=== PATIENT | male | born 1980 | race Caucasian/White ===

== ENCOUNTER 2017-10-22 12:04 | Emergency (ER) | payer MEDICARE ==
--- NOTE | 2017-10-22 12:53 | ERPHSYRPT ---
- History of Present Illness Time Seen by Provider: 10/22/17 12:36 Source: patient Exam Limitations: no limitations Patient Subjective Stated Complaint: Patient states his abdomen hurts above his naval. Patient states the pain is only when he pushes in on his abdomen or when he coughs. Patient stated he felt something in his abdomen above naval after heavy peterson labor. Patient states he can feel something protruding above his naval when he stands up. Triage Nursing Assessment: Patient ambulates in ER. Patient states his abdomen hurts above his naval. Patient states the pain is only when he pushes in on his abdomen or when he coughs. Patient stated he felt something in his abdomen above naval after heavy peterson labor. Patient states he can feel something protruding above his naval when he stands up. BS X 4. Abdoment round, soft. Physician History: 37-year-old white male previously healthy arrives with complaint of a sensation that something pokes out on his anterior abdomen when lifting and straining symptoms since yesterday. He noticed this while lifting at work. He states he has no pain unless he pushes on the area. He states he notices it when he stands up. He has not had any vomiting diarrhea fevers. He states he does note something that protrudes when he stands up but he is able to push it back easily. Past medical history is negative. Past surgical history is negative. Timing/Duration: yesterday Severity: moderate Modifying Factors: Improves With: other (llifting and straining) Associated Symptoms: abdominal pain (patient feels like something protrudes when he stands up and strains able to push back in easily), No nausea, No vomiting, No shortness of breath, No heartburn, No diaphoresis, No cough Hx Tetanus, Diphtheria Vaccination/Date Given: (Unknown) Hx Influenza Vaccination/Date Given: No Hx Pneumococcal Vaccination/Date Given: No Immunizations Up to Date: Yes - Review of Systems Constitutional: No Fever, No Chills Eyes: No Symptoms Ears, Nose, & Throat: No Symptoms Respiratory: No Cough, No Dyspnea Cardiac: No Chest Pain, No Edema, No Syncope Abdominal/Gastrointestinal: Abdominal Pain, Other (feels like something protrudes when he stands up able to push back in easilly) Genitourinary Symptoms: No Dysuria Musculoskeletal: No Back Pain, No Neck Pain Skin: No Rash Neurological: No Dizziness, No Focal Weakness, No Sensory Changes Psychological: No Symptoms Endocrine: No Symptoms All Other Systems: Reviewed and Negative - Past Medical History Pertinent Past Medical History: No - Past Surgical History Past Surgical History: No - Social History Smoking Status: Former smoker Exposure to second hand smoke: Yes Patient Lives Alone: No Significant Family History: no pertinent family hx - Nursing Vital Signs Nursing Vital Signs: Initial Vital Signs Temperature 98.0 F 10/22/17 12:13 Pulse Rate 61 10/22/17 12:13 Respiratory Rate 18 10/22/17 12:13 Blood Pressure 144/72 10/22/17 12:13 O2 Sat by Pulse Oximetry 100 10/22/17 12:13 - Physical Exam General Appearance: no apparent distress, alert Eye Exam: PERRL/EOMI, eyes nml inspection Ears, Nose, Throat Exam: normal ENT inspection, TMs normal, pharynx normal, moist mucous membranes Neck Exam: normal inspection, non-tender, supple, full range of motion Respiratory Exam: normal breath sounds, lungs clear, No respiratory distress Cardiovascular Exam: regular rate/rhythm, normal heart sounds, normal peripheral pulses Gastrointestinal/Abdomen Exam: soft, normal bowel sounds, other (aabdomen soft nontender positive bowel sounds , patient with a 1 cm periumbilical hernia evident only when patient stands up and strains, reduces easily) Male Genitalia Exam: normal genitalia, other (no inguinal hernia, ), No testicular tenderness Back Exam: normal inspection, normal range of motion, No CVA tenderness, No vertebral tenderness Extremity Exam: normal inspection, normal range of motion, pelvis stable Neurologic Exam: alert, oriented x 3, cooperative, 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 He has no pain unless he is pressing on the area. He has no vomiting no diarrhea no other symptoms. On physical examination patient has approximately 1 cm periumbilical hernia which is evident only when standing and straining. That reduces easily. Will go ahead and release patient have patient take Tylenol or Advil for pain. Will give patient Dr. Stanford's number for referral. Patient has been warned that should this become entrapped or usage have severe abdominal pain he needs to come into the emergency room. - Departure Time of Disposition: 12:53 Departure Disposition: Home Clinical Impression: Periumbilical hernia Condition: Fair Critical Care Time: No Referrals: JOSE STANFORD [ACTIVE STAFF] - Additional Instructions: Return home. Plenty of fluids clear fluids only if abdominal pain. Tylenol every 4 hours or Motrin every 6 hours as needed for pain, Follow-up with Dr. Stanford call and arrange an appointment, Return for acute distress or for severe symptoms, No abdominal straining no heavy lifting greater than 5 pounds. Return for acute distress or for severe symptoms.
[2017-10-22 13:03] VITALS: BP 107/55; PULSE 48; O2SAT 96
== END 2017-10-22 13:08 | disposition home or self-care (01) ==
LOC: ED 12:04
DX: K42.9 Umbilical hernia without obstruction or gangrene (principal)
CPT/HCPCS: 99283